=== PATIENT | female | born 1940 | race Caucasian/White ===

== ENCOUNTER → 2018-05-06 | Outpatient (CLI) | payer MEDICARE ==
[~2018-05-06] MED LIST: AEC81 PO; ATOR40TA71 PO; BRIM10DR16 OS; DICL2100G TP; FLUOROMETHOLONE 0.1% TP; GABA-531 PO; LOSA100T58 PO; METF-444 PO; TIMO.5OS OS
== END | disposition home or self-care (01) ==
LOC: RAH 13:35
PROVIDERS: ATTEND Thoracic Surgery (Cardiothoracic Vascular Surgery)
DX: I25.10 Atherosclerotic heart disease of native coronary artery without angina pectoris (principal); K76.89 Other specified diseases of liver; N28.1 Cyst of kidney, acquired; M47.815 Spondylosis without myelopathy or radiculopathy, thoracolumbar region
CPT/HCPCS: 71250

== ENCOUNTER 2018-07-02 13:17 | Observation (INO) | payer MEDICARE ==
[~2018-07-02] VITALS: Ht 157.5 cm; Wt 61.2 kg
[2018-07-02] MEDS ORDERED: NITROGLYCERIN 1GM/1 INCH PACKET TD ONE (13:42)
[2018-07-02 13:47] LABS: BASOPHILS % (AUTO) 1.1 % (0.0-5.0); EOSINOPHILS % (AUTO) 2.5 % (0.0-8.0); HEMATOCRIT 41.7 % (36-48); LYMPHOCYTES % (AUTO) 28.6 % (21.0-51.0); MEAN CORPUSCULAR HEMOGLOBIN 29.3 pg (27.0-33.0); MEAN CORPUSCULAR HGB CONC 32.9 g/dL (32.0-36.0); MEAN CORPUSCULAR VOLUME 89.2 fL (79-99); MONOCYTES % (AUTO) 8.4 % (3.0-13.0); NEUTROPHILS % (AUTO) 59.4 % (40.0-77.0); NUCLEATED RED BLOOD CELLS 0.1 % (0.0-0.19); PLATELET COUNT (AUTO) 206 K/uL (130-400); RED BLOOD CELL COUNT(AUTO) 4.68 MIL/uL (4.00-5.50); RED CELL DISTRIBUTION WIDTH 16.1 % (11.0-15.5); WHITE BLOOD COUNT (AUTO) 6.5 K/uL (4.8-10.8)
[2018-07-02 13:53] LABS: CREATININE 0.8 mg/dL (0.5-1.5)
[2018-07-02 13:57] LABS: ALBUMIN 4.1 g/dL (3.5-5.0); BILIRUBIN,TOTAL 0.7 mg/dL (0.2-1.0); TOTAL PROTEIN, SERUM 8.1 g/dL (6.0-8.3)
[2018-07-02] MEDS ORDERED: LABETALOL 20 MG/4 ML DISP.SYRIN IV ONE (14:54)
[2018-07-02] MEDS ORDERED: MORPHINE SULFATE 4 MG/1ML SYG ONE (16:44)
[2018-07-02] MEDS ORDERED: ONDANSETRON HCL 4 MG/2 ML VIAL ONE (16:44)
[2018-07-02] MEDS ORDERED: HYDRALAZINE HCL 20 MG/ML VIAL ONE (17:28)
[2018-07-02] MEDS: NITROGLYCERIN 1GM/1 INCH PACKET TD SCH ×2 (18:00→23:54)
[2018-07-02] MEDS ORDERED: HYDRALAZINE HCL 20 MG/ML VIAL IV PRN (18:30)
[2018-07-02 18:48] VITALS: BP 178/79
[2018-07-02 19:15] VITALS: BP 157/55
[2018-07-02 23:05] VITALS: BP 142/70
[2018-07-03 01:45] LABS: HEMATOCRIT 38.3 % (36-48); MEAN CORPUSCULAR HEMOGLOBIN 29.8 pg (27.0-33.0); MEAN CORPUSCULAR HGB CONC 33.3 g/dL (32.0-36.0); MEAN CORPUSCULAR VOLUME 89.6 fL (79-99); NUCLEATED RED BLOOD CELLS 0.1 % (0.0-0.19); PLATELET COUNT (AUTO) 176 K/uL (130-400); RED BLOOD CELL COUNT(AUTO) 4.27 MIL/uL (4.00-5.50); RED CELL DISTRIBUTION WIDTH 16.5 % (11.0-15.5); WHITE BLOOD COUNT (AUTO) 5.9 K/uL (4.8-10.8)
[2018-07-03 01:55] LABS: CREATININE 0.9 mg/dL (0.5-1.5); POTASSIUM 3.7 mmol/L (3.5-5.1)
[2018-07-03 03:05] VITALS: BP 161/87
[2018-07-03] MEDS: NITROGLYCERIN 1GM/1 INCH PACKET TD SCH (06:12)
[2018-07-03 07:30] VITALS: BP 165/80
--- NOTE | 2018-07-03 08:15 | NUR ---
JAQUAN HALL [facility] CALLED REGARDING CONSULT. AWAITING CALLBACK.
[2018-07-03] MEDS ORDERED: ASPIRIN 81MG TAB.CHEW PO SCH (09:00)
[2018-07-03] MEDS ORDERED: RIVA20TA PO (10:06)
[2018-07-03] MEDS ORDERED: ATOR40TA69 PO (10:06)
[2018-07-03] MEDS ORDERED: LOSA100T58 PO (10:06)
[2018-07-03] MEDS ORDERED: FURO20TA4 PO (10:06)
[2018-07-03] MEDS ORDERED: ASPI-1197 PO (10:06)
[2018-07-03] MEDS ORDERED: METO25TA6 PO (10:06)
--- NOTE | 2018-07-03 10:28 | NUR ---
REPAGED DR. JOSE A HALL REPAGED TO ANSWERING SERVICE REGARDING CONSULT AND TO INQUIRE OKAY TO RESUME HOME MEDICATIONS.
[2018-07-03 11:00] VITALS: BP 138/68
--- NOTE | 2018-07-03 11:00 | NUR ---
RICHA MCINTOSH PA FOR [facility]/DR. JOSE A HALL HERE TO SEE PATIENT. INFORMED THAT PATIENTS HOME MEDICATIONS UPDATED AND PENDING TO BE RESUMED.
[2018-07-03] MEDS ORDERED: CLONIDINE HCL 0.1 MG TABLET PO PRN (11:30)
[2018-07-03] MEDS ORDERED: FUROSEMIDE 20 MG TABLET PO PRN (11:30)
[2018-07-03] MEDS ORDERED: NITROGLYCERIN 0.4 MG SL TAB SL PRN (11:30)
--- NOTE | 2018-07-03 11:30 | NUR ---
HOME MEDICATIONS RECEIVED OKAY THAT PATIENT COULD RESUME HOME MEDICATIONS. PATIENT REPORTS TAKING HOME MEDICATIONS ASPIRIN 81MG PO, COZAAR 100MG PO, XARELTO 20 MG PO, AND METOPROLOL 25MG PO FROM HER OWN PRESCRIPTION BOTTLES, PATIENT TOLD ME SHE TOOK THEM BECAUSE RICHA MCINTOSH TOLD HER HOME MEDICATIONS WOULD BE STARTED. INFORMED PATIENT NURSING STAFF WOULD GIVE MEDICATIONS AND TO INFORM NURSE PRIOR TO TAKING MEDICATIONS.
--- NOTE | 2018-07-03 12:40 | NUR ---
PATIENT REASSESSMENT PATIENT AMBULATED AROUND THE FLOOR INSTRUCTED BY RICHA MCINTOSH DURING HIS VISIT. REASSESSED PATIENT AFTER AMBULATION AND PATIENT REPORTS NO CHEST PAIN OR DISCOMFORTS, VITAL SIGNS REMAIN STABLE. WILL CONTINUE TO MONITOR.
--- NOTE | 2018-07-03 14:45 | NUR ---
DR. JOSE A HALL MD HERE TO SEE PATIENT. STATES OKAY TO DISCHARGE PATIENT FROM CARDIOLOGY STANDPOINT AND PATIENT ALREADY HAS A SCHEDULED 2 WEEK FOLLOW-UP APPOINTMENT. WROTE FOR RX CLONIDINE 0.1MG PO PRN SBP >180.
--- NOTE | 2018-07-03 15:30 | NUR ---
DR. MATILDE LOFTON HERE TO SEE PATIENT. INFORMED MD OF DR. JOSE A HALL'S RECOMMENDATIONS. DR. CLAYTON SPOKE TO PATIENT AND PATIENT REPORTS NO CHEST PAIN TODAY. MD OKAYED TO DISCHARGE PATIENT TODAY.
[2018-07-03 16:00] VITALS: BP 155/78
--- NOTE | 2018-07-03 16:59 | NUR ---
DC PLAN VISITED WITH PATIENT. PATIENT LIVES WITH SPOUSE. INDEPENDENT ABLE TO PERFORM ADL'S. PATIENT HAS NO SERVICES OR DME'S. FEELS SAFE TO RETURN HOME. Addendum: 07/03/18 at 1709 by ROSENDO GARCIA RN CM Amended: Links added.
--- NOTE | 2018-07-03 18:00 | NUR ---
DISCHARGE DISCHARGE TEACHING PROVIDED TO PATIENT REGARDING RX, F/U APPT WITH SENIOR QUALITY TECHNICIAN (PATIENT CONFIRMS SHE ALREADY HAD SCHEDULED APPT), INFORMED PATIENT SHE WAS TO CALL TO SCHEDULE F/U WITH PCP. PATIENT VERBALIZED UNDERSTANDING OF DISCHARGE TEACHING. PATIENT REPORTS NO PAIN OR DISCOMFORTS. REMOVED 20G IV FROM RIGHT AC, CATHETER INTACT. PATIENT TO BE DRIVEN HOME BY HER .
[2018-07-03] MEDS ORDERED: ATORVASTATIN CALCIUM 40 MG TABLET PO SCH (21:00)
[2018-07-03] MEDS ORDERED: METOPROLOL TARTRATE 25 MG TAB PO SCH (21:00)
[2018-07-04] MEDS ORDERED: ASPIRIN 81MG TAB.CHEW PO SCH (09:00)
[2018-07-04] MEDS ORDERED: RIVAROXABAN 20 MG TABLET PO SCH (09:00)
[2018-07-04] MEDS ORDERED: LOSARTAN 100 MG TABLET PO SCH (09:00)
== END 2018-07-03 17:25 | disposition home or self-care (01) ==
LOC: EDH 13:17 → EDHIP 16:46 → 4BH 17:42
PROVIDERS: ADMIT Internal Medicine Pulmonary Disease; ATTEND Internal Medicine Pulmonary Disease
DX: R07.89 Other chest pain (principal); I11.0 Hypertensive heart disease with heart failure; I50.9 Heart failure, unspecified; E78.5 Hyperlipidemia, unspecified; G47.30 Sleep apnea, unspecified; H40.9 Unspecified glaucoma; I16.1 Hypertensive emergency; I25.10 Atherosclerotic heart disease of native coronary artery without angina pectoris; I25.2 Old myocardial infarction; I48.0 Paroxysmal atrial fibrillation; I73.9 Peripheral vascular disease, unspecified; Z79.01 Long term (current) use of anticoagulants; Z79.899 Other long term (current) drug therapy; Z95.1 Presence of aortocoronary bypass graft; Z96.653 Presence of artificial knee joint, bilateral; Z87.891 Personal history of nicotine dependence; Z88.0 Allergy status to penicillin
CPT/HCPCS: 36415 ×2; 71045; 80048; 80053; 82550; 83880; 84484 ×3; 85025; 85027; 93005 ×3; 99284; G0378 ×25; J0360; J2270; J2405

== ENCOUNTER 2020-12-23 07:22 | Observation (INO) | payer MEDICARE ==
[~2020-12-23] VITALS: Ht 157.5 cm; Wt 64.4 kg
[~2020-12-23 07:22] MED LIST changes: -AEC81 PO; +ASPI-1197 PO; +ATOR40TA69 PO; -ATOR40TA71 PO; -BRIM10DR16 OS; -DICL2100G TP; -FLUOROMETHOLONE 0.1% TP; +FURO20TA4 PO; -GABA-531 PO; -METF-444 PO; +METO25TA6 PO; +RIVA20TA PO; -TIMO.5OS OS
[2020-12-23 07:40] LABS: BASOPHILS % (AUTO) 0.3 % (0.0-5.0); EOSINOPHILS % (AUTO) 0.3 % (0.0-8.0); HEMATOCRIT 35.9 % (36-48); MEAN CORPUSCULAR HEMOGLOBIN 33.1 pg (27.0-33.0); MEAN CORPUSCULAR HGB CONC 34.3 g/dL (32.0-36.0); MEAN CORPUSCULAR VOLUME 96.5 fL (79-99); MONOCYTES % (AUTO) 7.9 % (3.0-13.0); NEUTROPHILS % (AUTO) 80.1 % (40.0-77.0); PLATELET COUNT (AUTO) 147 K/uL (130-400); RED BLOOD CELL COUNT(AUTO) 3.72 MIL/uL (4.00-5.50); RED CELL DISTRIBUTION WIDTH 12.9 % (11.0-15.5); WHITE BLOOD COUNT (AUTO) 7.8 K/uL (4.8-10.8)
[2020-12-23] MEDS ORDERED: MORPHINE 4 MG SYG ONE (08:09)
[2020-12-23] MEDS: MORPHINE 4 MG SYG IV SCH ×3 (08:19→11:59)
[2020-12-23 08:23] LABS: ALBUMIN 3.1 g/dL (3.5-5.0); BILIRUBIN,TOTAL 0.9 mg/dL (0.2-1.0); CREATININE 0.8 mg/dL (0.5-1.5); POTASSIUM 3.6 mmol/L (3.5-5.1); TOTAL PROTEIN, SERUM 7.3 g/dL (6.0-8.3)
[2020-12-23 09:46] LABS: CRP QUANTITATIVE 172.1 mg/L (0.00-9.0); MAGNESIUM 1.1 mg/dL (1.80-2.40)
[2020-12-23 10:17] LABS: APPEARANCE,URINE Clear (CLEAR); BILIRUBIN,URINE Negative (NEGATIVE); COLOR,URINE Yellow (YELLOW); GLUCOSE, URINE (UA) Negative (NEGATIVE); KETONES,URINE Trace mg/dL (NEGATIVE); LEUKOCYTE ESTERASE ,URINE Trace (NEGATIVE); NITRATE,URINE Positive (NEGATIVE); OCCULT BLOOD,URINE Negative (NEGATIVE); PH,URINE 5.5 (5.0-8.0); PROTEIN,URINE Trace mg/dL (NEGATIVE); UROBILINOGEN,URINE 0.2 mg/dL (0.2-1.0)
[2020-12-23 10:33] LABS: BACTERIA,URINE Moderate /HPF (None Seen); RBC,URINE 0-1 /HPF (0-1)
[2020-12-23] MEDS ORDERED: IOHEXOL-350 75 ML VIAL IV ONE (10:35)
[2020-12-23] MEDS ORDERED: CIPR-278 PO (11:29)
[2020-12-23] MEDS ORDERED: 0.9% NACL 500ML IV.SOLN 500 ML IV SCH (11:30)
[2020-12-23] MEDS ORDERED: LEVOFLOXACIN 500 MG/D5W 100 ML IV ONE (11:30)
[2020-12-23] MEDS ORDERED: LEVOFLOXACIN 500 MG/D5W 100 ML 100 ML IV SCH (11:30)
[2020-12-23] MEDS ORDERED: 0.9% NACL 500ML IV.SOLN 500 ML IV ONE (11:30)
[2020-12-23] MEDS ORDERED: DEXAMETHASONE SOD PHOSPHATE 4 MG/ML 1ML VIAL IVP SCH (12:00)
[2020-12-23] MEDS ORDERED: MAGNESIUM 2GM PREMIX 50ML 50 ML IV ONE (14:38)
[2020-12-23] MEDS ORDERED: DOCUSATE SODIUM 100 MG CAP PO PRN (15:30)
[2020-12-23] MEDS ORDERED: TEMAZEPAM 15 MG CAPSULE PO PRN (15:30)
[2020-12-23] MEDS ORDERED: POTASSIUM CHLORIDE 20MEQ/100ML 100 ML IV PRN (15:30)
[2020-12-23] MEDS ORDERED: GLUCAGON 1MG KIT 1 MG ML IM PRN (15:30)
[2020-12-23] MEDS ORDERED: KCL 20 MEQ ERTAB PO PRN (15:30)
[2020-12-23] MEDS ORDERED: DEXTROSE 50%-WATER 50 ML DISP.SYRIN IV PRN (15:30)
[2020-12-23] MEDS ORDERED: ONDANSETRON 4MG INJ IVP PRN (15:30)
[2020-12-23] MEDS ORDERED: CLONIDINE HCL 0.1 MG TABLET PO PRN (15:30)
[2020-12-23] MEDS ORDERED: MAGNESIUM 2GM PREMIX 50ML 50 ML IV PRN (15:30)
[2020-12-23] MEDS ORDERED: ACETAMINOPHEN 325 MG TAB PO PRN (15:30)
[2020-12-23] MEDS ORDERED: POTASSIUM CHLORIDE 10% ELIXIR 20 MEQ/15 ML UDCUP PO PRN (15:30)
[2020-12-23] MEDS ORDERED: LACTULOSE 20 GM/30 ML UDCUP PO PRN (15:30)
[2020-12-23] MEDS ORDERED: ACETAMINOPHEN 650 MG SUPPOSITORY RC PRN (15:30)
[2020-12-23] MEDS ORDERED: TRAMADOL HCL 50 MG TABLET PO PRN (15:30)
[2020-12-23] MEDS ORDERED: LIDOCAINE HCL-MPF 1% 2ML VIAL IV PRN (15:30)
[2020-12-23] MEDS ORDERED: METOPROLOL TARTRATE 25 MG TAB ONE (15:41)
[2020-12-23] MEDS: METOPROLOL TARTRATE 25 MG TAB PO SCH (15:42)
[2020-12-23 21:30] VITALS: BP 170/77
[2020-12-24 01:15] VITALS: BP 143/66
[2020-12-24 01:52] LABS: AMPHET/METH SCREEN,URINE NEGATIVE (NEGATIVE); BARBITURATE SCREEN, URINE NEGATIVE (NEGATIVE); BENZODIAZEPINES SCREEN,URINE NEGATIVE (NEGATIVE); CANNABINOID SCREEN,URINE NEGATIVE (NEGATIVE); COCAINE SCREEN,URINE NEGATIVE (NEGATIVE); OPIATE SCREEN,URINE POSITIVE (NEGATIVE); PHENCYCLIDINE SCREEN,URINE NEGATIVE (NEGATIVE)
[2020-12-24 04:00] VITALS: BP 154/69
[2020-12-24 05:43] LABS: BASOPHILS % (AUTO) 0.2 % (0.0-5.0); EOSINOPHILS % (AUTO) 1.7 % (0.0-8.0); HEMATOCRIT 35.8 % (36-48); LYMPHOCYTES % (AUTO) 11.4 % (21.0-51.0); MEAN CORPUSCULAR HEMOGLOBIN 32.8 pg (27.0-33.0); MEAN CORPUSCULAR HGB CONC 34.4 g/dL (32.0-36.0); MEAN CORPUSCULAR VOLUME 95.5 fL (79-99); MONOCYTES % (AUTO) 2.5 % (3.0-13.0); NEUTROPHILS % (AUTO) 83.9 % (40.0-77.0); PLATELET COUNT (AUTO) 172 K/uL (130-400); RED BLOOD CELL COUNT(AUTO) 3.75 MIL/uL (4.00-5.50); RED CELL DISTRIBUTION WIDTH 12.4 % (11.0-15.5); WHITE BLOOD COUNT (AUTO) 6.4 K/uL (4.8-10.8)
[2020-12-24 06:29] LABS: CREATININE 0.8 mg/dL (0.5-1.5); MAGNESIUM 2.1 mg/dL (1.80-2.40); PHOSPHORUS 3.4 mg/dL (2.5-4.9); POTASSIUM 4.1 mmol/L (3.5-5.1); THYROID STIMULATING HORMONE 0.29 uIU/mL (0.36-3.74)
[2020-12-24 08:00] VITALS: BP 155/68
[2020-12-24] MEDS: METOPROLOL TARTRATE 25 MG TAB PO SCH (08:51)
[2020-12-24] MEDS ORDERED: ASPIRIN 81MG CHEW TAB PO SCH (09:00)
[2020-12-24] MEDS ORDERED: LOSARTAN 100 MG TABLET PO SCH (09:00)
[2020-12-24] MEDS ORDERED: RIVAROXABAN 20 MG TABLET PO SCH (09:00)
[2020-12-24] MEDS ORDERED: LEVOFLOXACIN 500 MG TABLET PO SCH (09:00)
[2020-12-24 11:38] VITALS: BP 119/57
[2020-12-24] MEDS ORDERED: LEVO500T90 PO (13:16)
== END 2020-12-24 16:30 | disposition home or self-care (01) ==
LOC: EDH 07:22 → EDHIP 15:25 → 3AH 20:52
PROVIDERS: ADMIT Internal Medicine Critical Care Medicine; ATTEND Internal Medicine Critical Care Medicine
DX: E87.8 Other disorders of electrolyte and fluid balance, not elsewhere classified (principal); Z20.822 Contact with and (suspected) exposure to COVID-19; M79.10 Myalgia, unspecified site; E86.0 Dehydration; G89.29 Other chronic pain; M54.9 Dorsalgia, unspecified; N30.00 Acute cystitis without hematuria; E83.42 Hypomagnesemia; I10 Essential (primary) hypertension; E78.5 Hyperlipidemia, unspecified; F10.129 Alcohol abuse with intoxication, unspecified; Z79.82 Long term (current) use of aspirin; Z87.891 Personal history of nicotine dependence; Z79.899 Other long term (current) drug therapy; Z79.01 Long term (current) use of anticoagulants
CPT/HCPCS: 36415 ×2; 71045; 74177; 80048; 80053; 80305; 81001; 82550; 82948 ×2; 83605; 83690; 83735 ×3; 84100; 84145; 84443; 84484; 85025 ×2; 85651; 86140; 87077; 87088; 87186; 87635; 87804 ×2; 93005; 96365; 96367; 96375; 96376; 99285; C9803; G0378 ×25; J1100; J1956; J2270; J3475 ×2; Q9967; 96366

== ENCOUNTER 2023-02-28 11:33 | Observation (INO) | payer MEDICARE ==
[~2023-02-28] VITALS: Ht 157.5 cm; Wt 64.2 kg
[~2023-02-28 11:33] MED LIST changes: +LEVO-70 PO; -LOSA100T58 PO; +LOSA100T59 PO
[2023-02-28 12:32] LABS: HEMATOCRIT 40.4 % (36-48); MEAN CORPUSCULAR HGB CONC 33.2 g/dL (32.0-36.0); MEAN CORPUSCULAR VOLUME 102.5 fL (79-99); PLATELET COUNT (AUTO) 126 K/uL (130-400); RED BLOOD CELL COUNT(AUTO) 3.94 MIL/uL (4.00-5.50); RED CELL DISTRIBUTION WIDTH 13.1 % (11.0-15.5); WHITE BLOOD COUNT (AUTO) 5.4 K/uL (4.8-10.8)
[2023-02-28 12:48] LABS: CREATININE 0.9 mg/dL (0.5-1.5); TOTAL PROTEIN, SERUM 7.8 g/dL (6.0-8.3)
[2023-02-28 12:51] LABS: POTASSIUM 6.1 mmol/L (3.5-5.1)
[2023-02-28 13:07] LABS: LYMPHOCYTES % (MANUAL) 14 % (22-44); MAN.DIFF COMMENT-IMPRESSION MANUAL DIFFERENTIAL; MONOCYTES % (MANUAL) 11 % (2-9); PLATELET MORPHOLOGY COMMENT ADEQUATE; SEGMENTED NEUTROPHILS % 75 % (40-70); TOTAL CELLS COUNTED 100; WBC MORPHOLOGY SLIDE REVIEWED
[2023-02-28] MEDS ORDERED: ALBUTEROL 0.083% 2.5 MG/3 ML INH IH SCH (13:30)
[2023-02-28] MEDS ORDERED: SODIUM BICARB 8.4% 50ML SYRINGE IVP ONE (13:30)
[2023-02-28] MEDS ORDERED: CALCIUM GLUC 1GM 1 GM in 0.9%NACL 100ML 100 ML IV ONE (13:30)
[2023-02-28] MEDS ORDERED: INSULIN HUMULIN R 100 UNIT/ML 3ML IV ONE (13:30)
[2023-02-28] MEDS ORDERED: DEXTROSE 50%-WATER 25 GM/50 ML VIAL IV ONE (13:30)
[2023-02-28] MEDS ORDERED: 0.9% NACL 500ML IV.SOLN 500 ML IV ONE (13:30)
[2023-02-28 13:43] LABS: APPEARANCE,URINE CLEAR (CLEAR); BILIRUBIN,URINE NEGATIVE (NEGATIVE); COLOR,URINE COLORLESS (YELLOW); GLUCOSE, URINE (UA) NEGATIVE (NEGATIVE); KETONES,URINE NEGATIVE (NEGATIVE); LEUKOCYTE ESTERASE ,URINE NEGATIVE Leu/uL (NEGATIVE); NITRATE,URINE NEGATIVE (NEGATIVE); OCCULT BLOOD,URINE NEGATIVE (NEGATIVE); PROTEIN,URINE NEGATIVE (NEGATIVE); UROBILINOGEN,URINE 0.2 mg/dL (0.2-1.0)
[2023-02-28 13:53] LABS: ADD UA MICROSCOPIC NO
[2023-02-28] MEDS ORDERED: SODIUM BICARB 50MEQ 50ML VIAL 50 ML ONE (14:01)
[2023-02-28] MEDS ORDERED: DEXTROSE 50%-WATER 50 ML DISP.SYRIN IV ONE (14:02)
[2023-02-28 14:41] VITALS: PULSE 135
[2023-02-28] MEDS ORDERED: ACETAMINOPHEN 325 MG TAB PO PRN ×2 (16:00)
[2023-02-28] MEDS ORDERED: NITROGLYCERIN 0.4 MG SL TAB SL PRN (16:00)
[2023-02-28] MEDS: KAYEXALATE 15GM/60ML PO NR (16:00)
[2023-02-28] MEDS ORDERED: LACTULOSE 20 GM/30 ML UDCUP PO PRN (16:00)
[2023-02-28] MEDS ORDERED: MAG/ALUM/SIMETH 30 ML UDCUP PO PRN (16:00)
[2023-02-28] MEDS ORDERED: GUAIFENESIN-DM 200/20 MG 10 ML PO PRN (16:00)
[2023-02-28] MEDS ORDERED: ONDANSETRON 4MG INJ IV PRN (16:00)
[2023-02-28] MEDS: 0.9%NACL 1000ML 1,000 ML IV SCH (16:00)
[2023-02-28] MEDS ORDERED: ZOLPIDEM TARTRATE 5 MG TAB PO PRN (16:00)
[2023-02-28] MEDS ORDERED: DIPHENHYDRAMINE HCL 25 MG CAPSULE PO PRN (16:00)
[2023-02-28] MEDS: HYDRALAZINE 20MG/ML VIAL IV PRN (16:37)
[2023-02-28] MEDS: FAMOTIDINE 20MG TAB PO SCH (22:04)
[2023-03-01] MEDS ORDERED: KAYEXALATE 15GM/60ML PO ONE (09:00)
[2023-03-01 09:55] LABS: COVID19 (SARS ANTIGEN RAPID) PRESUMPTIVE NEGATIVE (NEGATIVE); INFLUENZA TYPE A Negative For Type A (NEGATIVE); INFLUENZA TYPE B Negative For Type B (NEGATIVE)
[2023-03-01] MEDS: FAMOTIDINE 20MG TAB PO SCH ×2 (10:08→21:22)
[2023-03-01] MEDS: ENOXAPARIN SODIUM 40 MG/0.4 ML SYRINGE SQ SCH (10:10)
[2023-03-01 10:22] LABS: BASOPHILS # (AUTO) 0.04 K/uL (0.00-0.20); BASOPHILS % (AUTO) 0.7 % (0.0-5.0); EOSINOPHILS # (AUTO) 0.12 K/uL (0.00-0.70); HEMATOCRIT 38.5 % (36-48); IMMATURE GRANULOCYTE ABSOLUTE 0.02 K/uL (0-1); LYMPHOCYTES # (AUTO) 1.1 K/uL (1.0-4.8); MEAN CORPUSCULAR HEMOGLOBIN 34.1 pg (27.0-33.0); MEAN CORPUSCULAR HGB CONC 33.8 g/dL (32.0-36.0); MONOCYTES # (AUTO) 0.5 K/uL (0.1-1.0); MONOCYTES % (AUTO) 8.9 % (3.0-13.0); NEUTROPHILS # (AUTO) 4.3 K/uL (1.8-7.7); NEUTROPHILS % (AUTO) 70.1 % (40.0-77.0); PLATELET COUNT (AUTO) 143 K/uL (130-400); RED BLOOD CELL COUNT(AUTO) 3.81 MIL/uL (4.00-5.50); RED CELL DISTRIBUTION WIDTH 13.2 % (11.0-15.5); WHITE BLOOD COUNT (AUTO) 6.1 K/uL (4.8-10.8)
[2023-03-01] MEDS ORDERED: CYAN500T46 PO (10:55)
[2023-03-01] MEDS ORDERED: CARV25TA PO (10:55)
[2023-03-01] MEDS ORDERED: DICL100G32 TP (10:55)
[2023-03-01] MEDS ORDERED: CLON0.1T PO (10:55)
[2023-03-01] MEDS ORDERED: SOLI10TA7 PO (10:55)
[2023-03-01] MEDS ORDERED: DOXA1TAB2 PO (10:55)
[2023-03-01] MEDS ORDERED: POTA-81 PO (10:55)
[2023-03-01 11:09] LABS: CREATININE 0.8 mg/dL (0.5-1.5); POTASSIUM 4.9 mmol/L (3.5-5.1)
[2023-03-01] MEDS: 0.9%NACL 1000ML 1,000 ML IV SCH (11:47)
[2023-03-01 16:00] VITALS: BP 158/83; PULSE 98; RESP 20
[2023-03-01] MEDS ORDERED: FUROSEMIDE 20 MG TABLET PO PRN (16:00)
[2023-03-01] MEDS: DOXAZOSIN MESYLATE 2 MG TABLET PO SCH (16:39)
[2023-03-01 20:56] VITALS: BP 161/79; PULSE 86; RESP 18
[2023-03-01 21:00] VITALS: O2SAT 98
[2023-03-01] MEDS ORDERED: ATORVASTATIN 40 MG TABLET PO SCH (21:00)
[2023-03-01] MEDS: METOPROLOL TARTRATE 25 MG TAB PO SCH ×2 (21:00→21:22)
[2023-03-01] MEDS: CARVEDILOL 25 MG TABLET PO SCH (21:22)
[2023-03-01] MEDS ORDERED: KAYEXALATE 15GM/60ML PO SCH (21:30)
[2023-03-01] MEDS: KAYEXALATE 15GM/60ML PO NR (21:33)
[2023-03-02 00:50] VITALS: BP 172/87; PULSE 95; RESP 19
[2023-03-02 01:00] VITALS: BP 153/74
[2023-03-02] MEDS: HYDRALAZINE 20MG/ML VIAL IV PRN (04:29)
[2023-03-02 04:30] VITALS: BP 176/92; PULSE 87; RESP 19
[2023-03-02 05:00] VITALS: BP 112/57; PULSE 92
[2023-03-02 06:43] LABS: BASOPHILS # (AUTO) 0.03 K/uL (0.00-0.20); BASOPHILS % (AUTO) 0.6 % (0.0-5.0); EOSINOPHILS # (AUTO) 0.15 K/uL (0.00-0.70); EOSINOPHILS % (AUTO) 2.8 % (0.0-8.0); IMMATURE GRANULOCYTE ABSOLUTE 0.03 K/uL (0-1); LYMPHOCYTES % (AUTO) 18.9 % (21.0-51.0); MEAN CORPUSCULAR HEMOGLOBIN 34.6 pg (27.0-33.0); MEAN CORPUSCULAR HGB CONC 34.1 g/dL (32.0-36.0); MEAN CORPUSCULAR VOLUME 101.6 fL (79-99); MONOCYTES # (AUTO) 0.7 K/uL (0.1-1.0); MONOCYTES % (AUTO) 13.4 % (3.0-13.0); NEUTROPHILS # (AUTO) 3.4 K/uL (1.8-7.7); NEUTROPHILS % (AUTO) 63.7 % (40.0-77.0); PLATELET COUNT (AUTO) 116 K/uL (130-400); RED BLOOD CELL COUNT(AUTO) 3.64 MIL/uL (4.00-5.50); RED CELL DISTRIBUTION WIDTH 13.2 % (11.0-15.5); WHITE BLOOD COUNT (AUTO) 5.3 K/uL (4.8-10.8)
[2023-03-02 07:01] LABS: ALBUMIN 3.3 g/dL (3.5-5.0); BILIRUBIN,TOTAL 0.9 mg/dL (0.2-1.0); CREATININE 0.7 mg/dL (0.5-1.5); TOTAL PROTEIN, SERUM 6.5 g/dL (6.0-8.3)
[2023-03-02 08:00] VITALS: BP 130/68; PULSE 66; RESP 20; O2SAT 97
[2023-03-02 08:44] LABS: MAGNESIUM 0.8 mg/dL (1.80-2.40)
[2023-03-02] MEDS ORDERED: AMLO-258 PO (09:20)
[2023-03-02] MEDS ORDERED: MAGNESIUM 2GM PREMIX 50ML 50 ML IV PRN ×2 (09:30)
[2023-03-02] MEDS: FAMOTIDINE 20MG TAB PO SCH (09:51)
[2023-03-02] MEDS: METOPROLOL TARTRATE 25 MG TAB PO SCH (09:52)
[2023-03-02] MEDS: DOXAZOSIN MESYLATE 2 MG TABLET PO SCH (09:52)
[2023-03-02] MEDS: CARVEDILOL 25 MG TABLET PO SCH (09:52)
[2023-03-02] MEDS: ENOXAPARIN SODIUM 40 MG/0.4 ML SYRINGE SQ SCH (09:54)
[2023-03-02 12:00] VITALS: BP 119/53; PULSE 92; RESP 20
[2023-03-02] MEDS ORDERED: MAGNESIUM OXIDE 400 MG TABLET PO ONE (12:30)
[2023-03-04] MEDS ORDERED: CHOL500051 PO (09:50)
[2023-03-04] MEDS ORDERED: PROP10DR4 OU (12:24)
== END 2023-03-02 15:20 | disposition home or self-care (01) ==
LOC: EDH 11:33 → EDHIP 15:56 → 3AH 03-01 11:19
PROVIDERS: ADMIT Internal Medicine Pulmonary Disease; ATTEND Internal Medicine Pulmonary Disease
DX: I11.9 Hypertensive heart disease without heart failure (principal); Z20.822 Contact with and (suspected) exposure to COVID-19; D69.6 Thrombocytopenia, unspecified; M25.511 Pain in right shoulder; E87.5 Hyperkalemia; I25.10 Atherosclerotic heart disease of native coronary artery without angina pectoris; I25.2 Old myocardial infarction; Z95.1 Presence of aortocoronary bypass graft; Z79.899 Other long term (current) drug therapy; Z88.0 Allergy status to penicillin; Z90.710 Acquired absence of both cervix and uterus; Z79.82 Long term (current) use of aspirin; Z96.659 Presence of unspecified artificial knee joint
CPT/HCPCS: 96365; 96366 ×2; 96375; 99284; 84132 ×5; 80053 ×2; 85025 ×3; 36415 ×3; 93005 ×2; 94640; 96372 ×2; 96361 ×2; 80048; 87804 ×2; 87426; 96376; 96367; 83735 ×3; G0378 ×43; J7040; J3490; J7070 ×2; J0360 ×2; J0610; J1815; J1650 ×2; J3475

== ENCOUNTER 2023-03-05 05:50 | Observation (INO) | payer MEDICARE ==
[2023-02-28 10:56] LABS: BASOPHILS # (AUTO) 0.04 K/uL (0.00-0.20); BASOPHILS % (AUTO) 0.7 % (0.0-5.0); EOSINOPHILS # (AUTO) 0.07 K/uL (0.00-0.70); EOSINOPHILS % (AUTO) 1.3 % (0.0-8.0); HEMATOCRIT 40.2 % (36-48); IMMATURE GRANULOCYTE ABSOLUTE 0.02 K/uL (0-1); LYMPHOCYTES # (AUTO) 1.2 K/uL (1.0-4.8); LYMPHOCYTES % (AUTO) 21.9 % (21.0-51.0); MEAN CORPUSCULAR HEMOGLOBIN 33.8 pg (27.0-33.0); MEAN CORPUSCULAR HGB CONC 32.3 g/dL (32.0-36.0); MEAN CORPUSCULAR VOLUME 104.4 fL (79-99); MONOCYTES # (AUTO) 0.5 K/uL (0.1-1.0); MONOCYTES % (AUTO) 9.8 % (3.0-13.0); NEUTROPHILS # (AUTO) 3.6 K/uL (1.8-7.7); NEUTROPHILS % (AUTO) 65.9 % (40.0-77.0); PLATELET COUNT (AUTO) 145 K/uL (130-400); RED BLOOD CELL COUNT(AUTO) 3.85 MIL/uL (4.00-5.50); RED CELL DISTRIBUTION WIDTH 13.2 % (11.0-15.5); WHITE BLOOD COUNT (AUTO) 5.5 K/uL (4.8-10.8)
[2023-02-28 11:11] LABS: CREATININE 0.9 mg/dL (0.5-1.5)
[2023-02-28 11:11] LABS: APPEARANCE,URINE CLEAR (CLEAR); BILIRUBIN,URINE NEGATIVE (NEGATIVE); COLOR,URINE LIGHT-YELLOW (YELLOW); GLUCOSE, URINE (UA) NEGATIVE (NEGATIVE); KETONES,URINE NEGATIVE (NEGATIVE); LEUKOCYTE ESTERASE ,URINE NEGATIVE Leu/uL (NEGATIVE); NITRATE,URINE NEGATIVE (NEGATIVE); OCCULT BLOOD,URINE NEGATIVE (NEGATIVE); PROTEIN,URINE NEGATIVE (NEGATIVE); UROBILINOGEN,URINE 0.2 mg/dL (0.2-1.0)
[2023-02-28 11:14] LABS: POTASSIUM 6.7 mmol/L (3.5-5.1)
[2023-02-28 11:15] LABS: ADD UA MICROSCOPIC NO
[2023-02-28 11:30] LABS: INR < 0.93 (0.85-1.15); PROTHROMBIN TIME 10.6 SEC (9.6-11.6)
[2023-02-28 13:08] VITALS: BP 183/86; PULSE 65; RESP 16
[~2023-03-05] VITALS: Ht 157.5 cm; Wt 63.7 kg
[2023-03-05] VITALS (32 sets, daily range): BP systolic 104–148; BP diastolic 46–81; PULSE 56–71; RESP 14–19
[~2023-03-05 05:50] MED LIST changes: +AMLO-258 PO; +CARV25TA PO; +CHOL500051 PO; +CLON0.1T PO; +CYAN500T46 PO; +DOXA1TAB2 PO; -FURO20TA4 PO; -LEVO-70 PO; -LOSA100T59 PO; -METO25TA6 PO; +PROP10DR4 OU
[2023-03-05] MEDS ORDERED: LACTATED RINGERS 1000ML 1,000 ML IV ONE (06:24)
[2023-03-05] MEDS ORDERED: CLINDAMYCIN IVPB 900MG/50ML 50 ML IV ONE (06:25)
[2023-03-05] MEDS ORDERED: ONDANSETRON 4MG INJ ONE (09:53)
[2023-03-05] MEDS ORDERED: PROPOFOL 10 MG/ML 20ML VIAL IV ONE (09:53)
[2023-03-05] MEDS ORDERED: GLYCOPYRROLATE 0.2 MG/ML 5 ML VIAL ONE (09:53)
[2023-03-05] MEDS ORDERED: LIDOCAINE PF 100MG/5ML (2%) SYRINGE 5ML ONE (09:53)
[2023-03-05] MEDS ORDERED: DEXAMETHASONE SOD PHOSPHATE 10MG/ML 1ML VIAL ONE (09:53)
[2023-03-05] MEDS ORDERED: SUCCINYLCHOLINE CHLORIDE 20 MG/ML 10 ML VIAL ONE (09:53)
[2023-03-05] MEDS ORDERED: ROCURONIUM BROMIDE 10MG/1ML 5ML VL ONE (09:54)
[2023-03-05] MEDS ORDERED: FENTANYL CITRATE PF 50 MCG/1 ML 2ML VIAL ONE (09:54)
[2023-03-05] MEDS ORDERED: MIDAZOLAM HCL 1 MG/ML 2ML VIAL ONE (09:54)
[2023-03-05] MEDS ORDERED: NEOSTIGMINE METHYLSULFATE 1MG/ML IV ONE (09:54)
[2023-03-05] MEDS ORDERED: PHENYLEPHRINE HCL 10 MG/ML 1ML VIAL IV ONE (10:47)
[2023-03-05] MEDS ORDERED: ALBUMIN (HUMAN) 5% 250 ML IV ONE (10:50)
[2023-03-05] MEDS ORDERED: TRANEXAMIC ACID 1000MG/10ML ONE (10:50)
[2023-03-05] MEDS ORDERED: SUGAMMADEX SODIUM 200 MG/2 ML VIAL IV ONE (13:02)
[2023-03-05] MEDS ORDERED: FE FUMARATE/FA/MV, MIN COMB#15 1 TAB PO PRN (13:30)
[2023-03-05] MEDS ORDERED: POTASSIUM CHLORIDE 10% ELIXIR 20 MEQ/15 ML UDCUP PO PRN (13:30)
[2023-03-05] MEDS: 0.9%NACL 1000ML 1,000 ML IV SCH ×2 (13:30→22:26)
[2023-03-05] MEDS ORDERED: ONDANSETRON 4MG INJ IVP PRN (13:30)
[2023-03-05] MEDS ORDERED: TRAMADOL HCL 50 MG TABLET PO PRN (13:30)
[2023-03-05] MEDS ORDERED: CYCLOBENZAPRINE HCL 10 MG TABLET PO PRN (13:30)
[2023-03-05] MEDS ORDERED: POTASSIUM CHLORIDE 20MEQ/100ML 100 ML IV PRN (13:30)
[2023-03-05] MEDS ORDERED: CALCIUM CARB 500MG PO PRN (13:30)
[2023-03-05] MEDS ORDERED: KCL 20 MEQ ERTAB PO PRN (13:30)
[2023-03-05] MEDS ORDERED: MEPERIDINE-PF 25 MG/ML SYG ONE (14:21)
[2023-03-05] MEDS ORDERED: KETOROLAC 15MG/ML VIAL (15MG/ML) ONE (14:21)
[2023-03-05] MEDS: KETOROLAC 15MG/ML VIAL (15MG/ML) IV SCH ×2 (14:25→21:20)
[2023-03-05] MEDS ORDERED: 0.9%NACL 1000ML 1,000 ML IV ONE (16:11)
[2023-03-05] MEDS: GABAPENTIN 100 MG CAPSULE PO SCH ×2 (16:17→19:51)
[2023-03-05] MEDS: CLINDAMYCIN IVPB 900MG/50ML IV SCH (19:51)
[2023-03-05] MEDS: DOCUSATE SODIUM 100 MG CAP PO SCH (19:51)
[2023-03-05] MEDS: HYDROCODONE/ACETAMINOPHEN 5/325 MG TAB PO PRN (23:02)
[2023-03-06 01:00] VITALS: BP 120/56; PULSE 62; RESP 17
[2023-03-06] MEDS ORDERED: CLONIDINE HCL 0.1 MG TABLET PO PRN (01:30)
[2023-03-06] MEDS: CLINDAMYCIN IVPB 900MG/50ML IV SCH (02:31)
[2023-03-06 04:02] VITALS: BP 122/57; PULSE 66; RESP 18
[2023-03-06 04:35] LABS: HEMATOCRIT 28.7 % (36-48); MEAN CORPUSCULAR HEMOGLOBIN 33.5 pg (27.0-33.0); MEAN CORPUSCULAR HGB CONC 33.1 g/dL (32.0-36.0); MEAN CORPUSCULAR VOLUME 101.1 fL (79-99); RED BLOOD CELL COUNT(AUTO) 2.84 MIL/uL (4.00-5.50); RED CELL DISTRIBUTION WIDTH 12.4 % (11.0-15.5); WHITE BLOOD COUNT (AUTO) 7.8 K/uL (4.8-10.8)
[2023-03-06 04:45] LABS: CREATININE 0.7 mg/dL (0.5-1.5)
[2023-03-06] MEDS: KETOROLAC 15MG/ML VIAL (15MG/ML) IV SCH (04:58)
[2023-03-06] MEDS: HYDROCODONE/ACETAMINOPHEN 5/325 MG TAB PO PRN ×2 (05:28→09:43)
[2023-03-06 08:00] VITALS: BP 120/61; PULSE 64; RESP 18
[2023-03-06] MEDS ORDERED: AMLODIPINE 5 MG TAB PO SCH (09:00)
[2023-03-06] MEDS ORDERED: (Cholecalciferol (Vitamin D3) (Vitamin D3) 125 MCG) PO SCH (09:00)
[2023-03-06] MEDS ORDERED: PROPYLENE GLYCOL OU SCH (09:00)
[2023-03-06] MEDS ORDERED: CARVEDILOL 25 MG TABLET PO SCH (09:00)
[2023-03-06] MEDS ORDERED: POLYETHYLENE GLYCOL 3350 17 GM POWD.PACK PO SCH (09:00)
[2023-03-06] MEDS ORDERED: CYANOCOBALAMIN (VITAMIN B-12) 100 MCG TABLET PO SCH (09:00)
[2023-03-06] MEDS: 0.9%NACL 1000ML 1,000 ML IV SCH (09:30)
[2023-03-06] MEDS: DOCUSATE SODIUM 100 MG CAP PO SCH (09:41)
[2023-03-06 12:00] VITALS: BP 115/57; PULSE 66; RESP 18
[2023-03-06] MEDS ORDERED: CYCL-309 PO (12:39)
[2023-03-06] MEDS ORDERED: HYDR-4060 PO (12:39)
[2023-03-06] MEDS ORDERED: DOCU-116 PO (12:39)
[2023-03-06] MEDS ORDERED: KETOROLAC 15MG/ML VIAL (15MG/ML) IV PRN (13:30)
[2023-03-06] MEDS ORDERED: ATORVASTATIN 40 MG TABLET PO SCH (21:00)
[2023-03-06] MEDS ORDERED: DOXAZOSIN MESYLATE 1 MG PO SCH (21:00)
[2023-03-08] MEDS ORDERED: BISACODYL 10 MG SUPP.RECT RC PRN (13:30)
== END 2023-03-06 15:50 | disposition home or self-care (01) ==
LOC: DAH 05:50 → DAHIP 05:51 → DAH 05:51 → 4BH 20:20
PROVIDERS: ADMIT Student in an Organized Health Care Education/Training Program; ATTEND Student in an Organized Health Care Education/Training Program
DX: M19.011 Primary osteoarthritis, right shoulder (principal); I11.0 Hypertensive heart disease with heart failure; I50.9 Heart failure, unspecified; I48.91 Unspecified atrial fibrillation; G47.33 Obstructive sleep apnea (adult) (pediatric); E78.5 Hyperlipidemia, unspecified; Z87.891 Personal history of nicotine dependence; Z79.899 Other long term (current) drug therapy
CPT/HCPCS: 82040; 80048 ×2; 85025; 85610; 85730; 87077; 87088; 87186; 84134; 86140; 81003; 36415 ×2; 87641; 96365; 96375; 64415; 23472; 73030; 97161; 97116 ×3; 97530 ×8; 96376; 96366; 85027; 82948; G0378 ×19; A4600; A4663; J7030 ×2; A4565; C1776; P9045; J7120; J3010; J3490 ×6; J1100; J0330; J2001; J2250; J2704; J2405; J2710; J2175; J1885 ×4; A6446; G0168; A4649 ×2; A6254; A5120; A4215; A4223; A4222; A4221; J2371

== ENCOUNTER → 2023-06-26 | Outpatient (CLI) | payer MEDICARE ==
[~2023-06-26] MED LIST changes: +CYCL-309 PO; +DOCU-116 PO; +HYDR-4060 PO
[2023-06-26 16:29] LABS: CREATININE 0.9 mg/dL (0.5-1.0); POTASSIUM 4.5 mmol/L (3.5-5.1)
== END | disposition home or self-care (01) ==
LOC: LAB 15:51
PROVIDERS: ATTEND Internal Medicine Cardiovascular Disease
DX: E87.5 Hyperkalemia (principal)
CPT/HCPCS: 36415; 80048

== ENCOUNTER 2024-02-11 16:00 | Observation (INO) | payer MEDICARE ==
[~2024-02-11] VITALS: Ht 157.5 cm; Wt 63.5 kg
[2024-02-11 12:39] LABS: BASOPHILS # (AUTO) 0.06 K/uL (0.00-0.20); BASOPHILS % (AUTO) 0.8 % (0.0-5.0); EOSINOPHILS % (AUTO) 1.4 % (0.0-8.0); HEMATOCRIT 40.1 % (36-48); IMMATURE GRANULOCYTE ABSOLUTE 0.04 K/uL (0-1); LYMPHOCYTES # (AUTO) 1.5 K/uL (1.0-4.8); LYMPHOCYTES % (AUTO) 21.2 % (21.0-51.0); MEAN CORPUSCULAR HEMOGLOBIN 33.2 pg (27.0-33.0); MEAN CORPUSCULAR HGB CONC 32.7 g/dL (32.0-36.0); MEAN CORPUSCULAR VOLUME 101.8 fL (79-99); MONOCYTES # (AUTO) 0.8 K/uL (0.1-1.0); MONOCYTES % (AUTO) 10.9 % (3.0-13.0); NEUTROPHILS # (AUTO) 4.6 K/uL (1.8-7.7); NEUTROPHILS % (AUTO) 65.1 % (40.0-77.0); PLATELET COUNT (AUTO) 170 K/uL (130-400); RED BLOOD CELL COUNT(AUTO) 3.94 MIL/uL (4.00-5.50); RED CELL DISTRIBUTION WIDTH 12.2 % (11.0-15.5); WHITE BLOOD COUNT (AUTO) 7.1 K/uL (4.8-10.8)
[2024-02-11 12:46] LABS: APPEARANCE,URINE CLOUDY (CLEAR); BILIRUBIN,URINE NEGATIVE (NEGATIVE); COLOR,URINE YELLOW (YELLOW); GLUCOSE, URINE (UA) NEGATIVE (NEGATIVE); KETONES,URINE NEGATIVE (NEGATIVE); LEUKOCYTE ESTERASE ,URINE 25 Leu/uL (NEGATIVE); NITRATE,URINE 1+ (NEGATIVE); OCCULT BLOOD,URINE NEGATIVE (NEGATIVE); PH,URINE 6.5 (5.0-8.0); PROTEIN,URINE 10 mg/dL (NEGATIVE); UROBILINOGEN,URINE 0.2 mg/dL (0.2-1.0)
[2024-02-11 12:48] LABS: ADD UA MICROSCOPIC YES
[2024-02-11 12:48] LABS: INR 1.01 (0.85-1.15); PROTHROMBIN TIME 10.9 SEC (9.6-11.6)
[2024-02-11 12:49] LABS: PARTIAL THROMBOPLASTIN TIME 29.3 SEC (26.3-35.5)
[2024-02-11 12:51] LABS: ALBUMIN 3.6 g/dL (3.5-5.0); POTASSIUM 4.5 mmol/L (3.5-5.1)
[2024-02-11 12:59] LABS: BACTERIA,URINE FEW /HPF (None Seen); OTHER CASTS, URINE 1 /LPF (None Seen); RBC,URINE 0-1 /HPF (0-1); SQUAMOUS EPITHELIAL CELL,UR FEW /HPF (0-2)
[2024-02-11 13:05] VITALS: BP 174/94; PULSE 62; RESP 18; TEMP 97.2
[~2024-02-11 16:00] MED LIST changes: +ACET-66 PO; -AMLO-258 PO; -CHOL500051 PO; -CLON0.1T PO; -CYAN500T46 PO; -CYCL-309 PO; -DOCU-116 PO; +FURO20TA4 PO; -HYDR-4060 PO; +LOSA100T59 PO; -PROP10DR4 OU
--- NOTE | 2024-02-17 10:52 | NUR ---
RE: LABS REPORTED URINE CX/SENSITIVITIES TO DR DIAZ, CONTINUE WITH CEFAZOLIN LIDDING MACHINE OPERATOR TO OR PREVIOUSLY ORDERED.
[2024-02-18] VITALS (30 sets, daily range): BP systolic 84–203; BP diastolic 46–113; PULSE 55–79; RESP 13–18; TEMP 96.9–97.8; O2SAT 98–99
[2024-02-18] MEDS ORDERED: LIDOCAINE PF 100MG/5ML (2%) SYRINGE 5ML ONE (06:47)
[2024-02-18] MEDS ORDERED: MIDAZOLAM HCL 1 MG/ML 2ML VIAL ONE (06:47)
[2024-02-18] MEDS ORDERED: ondanSETRON 4MG INJ ONE (06:47)
[2024-02-18] MEDS ORDERED: proPOFol 10 MG/ML 20ML VIAL IV ONE (06:47)
[2024-02-18] MEDS ORDERED: GLYCOPYRROLATE 0.2 MG/ML 5 ML VIAL ONE (06:47)
[2024-02-18] MEDS ORDERED: dexaMETHasone SOD PHOSPHATE 10MG/ML 1ML VIAL ONE ×2 (06:47→07:45)
[2024-02-18] MEDS ORDERED: NEOSTIGMINE METHYLSULFATE 1MG/ML IV ONE (06:47)
[2024-02-18] MEDS ORDERED: rocuRONium bROMide 10MG/1ML 5ML VL ONE (06:48)
[2024-02-18] MEDS ORDERED: FENTanyl CITRate PF 50 MCG/1 ML 2ML VIAL ONE ×2 (06:48→09:37)
[2024-02-18] MEDS ORDERED: ROPivacaine 0.5% 5MG/ML 30ML ONE (06:52)
[2024-02-18] MEDS ORDERED: phenylEPHRINE HCL 10 MG/ML 1ML VIAL IV ONE (06:54)
[2024-02-18] MEDS: ceFAZolin SODIUM 2 GM VIAL ONE (07:17)
[2024-02-18] MEDS: CLINDAMYCIN IVPB 900MG/50ML 0 ML IV ONE (07:17)
[2024-02-18] MEDS: LACTATED RINGERS 1000ML 1,000 ML IV ONE (07:18)
[2024-02-18] MEDS ORDERED: DiphenhydrAMINE HCL 50 MG/ML VIAL IVP PRN (07:30)
[2024-02-18] MEDS ORDERED: FERROUS FUMARATE 324 MG TABLET PO PRN (07:30)
[2024-02-18] MEDS ORDERED: furoSEMIDE 20 MG TABLET PO SCH (07:30)
[2024-02-18] MEDS ORDERED: PoTASSium chl 10% ELIXIR 20MEQ 20 MEQ/15 ML UDCUP PO PRN (07:30)
[2024-02-18] MEDS ORDERED: PoTASSium chloRIDE 20MEQ ER 20 MEQ ERTAB PO PRN (07:30)
[2024-02-18] MEDS: ketOROlac 15MG/ML VIAL (15MG/ML) IV SCH (07:30)
[2024-02-18] MEDS ORDERED: ondanSETRON 4MG INJ IVP PRN (07:30)
[2024-02-18] MEDS ORDERED: PoTASSium chloRIDE 20MEQ/100ML 100 ML IV PRN (07:30)
[2024-02-18] MEDS ORDERED: CALCIUM CARB 500MG PO PRN (07:30)
[2024-02-18] MEDS: TRANEXAMIC ACID 1000MG/10ML ONE (08:10)
[2024-02-18] MEDS ORDERED: hydrALAZine 20MG/ML VIAL ONE (08:14)
--- NOTE | 2024-02-18 09:55 | OP ---
Operative Note: DATE OF PROCEDURE: 02/18/24 SURGEON: DAYAMI DIAZ MD DOLLYMAN: Dewey Joya ANESTHESIA: General and fascia iliaca block ANESTHESIOLOGIST/OPENSTACK CLOUD CONSULTING ARCHITECT: Rolando Aldridge CRNA PREOPERATIVE DIAGNOSIS: Right hip osteoarthritis POSTOPERATIVE DIAGNOSIS: Right hip osteoarthritis PROCEDURE: Right total hip arthroplasty ESTIMATED BLOOD LOSS: 250 cc INDICATIONS: 83-year-old female with chronic right hip pain secondary to right hip osteoarthritis failing conservative management. After discussion of the risks, benefits, and alternatives, the patient voluntarily agreed to undergo the aforementioned procedure. IMPLANTS: 50 mm Batista and Nephew three hole acetabular component with 6.5 screws x2 and central hole cover, 0 degree liner, size four standard offset anthology stem with a 36mm -3 Oxinium head, 2.0 mm accord cerclage cable placed for prophylaxis DESCRIPTION OF PROCEDURE: Patient was properly identified in the preoperative holding area. Surgical site marking was verified and surgery consent reviewed. The patient was then taken to the operating room and placed in supine position on the OR table. After induction of general anesthesia, preoperative antibiotics were given. The patient was then transitioned in the lateral decubitus position with the right side up. All bony prominences were well-padded. Right lower extremity was then prepped and draped in the usual sterile fashion. Surgical time out was done verifying correct surgery, side, site, and location to be performed. We then began the procedure by making approximately 15 cm long incision centered over the greater trochanter. Here we came sharply through skin down to the fascia. Hemostasis was then achieved using Bovie electrocautery. We then incised fascia in line with the skin incision and finger split the tensor muscle proximally. We then placed our Charnley retractor. At this point we identified the vastus ridge and began elevating the full-thickness soft tissue flap off of the vastus ridge, splitting the vastus lateralis and gluteus muscles as necessary. We then proceeded to externally rotate the femur while making this flap. We resected part of the anterior capsule. The femoral head and neck was then delivered into view. We then dislocated the hip and performed a femoral neck osteotomy approximately half fingerbreadth proximal lesser trochanter. We then placed our retractors around the superior and anterior portion of the acetabulum and began to remove the labrum circumferentially. We then began reaming the acetabulum where we reamed up to a size 49 ensuring appropriate anteversion and abduction. We then proceeded to trial with the size 49 acetabular component and this appeared to sit well. We opened our size 50 acetabular component and after irrigating out the wound malleted this into place. It appeared to have good press-fit however we elected to place 6.5mm s crews x 2. We drilled and filled the screws in standard fashion in the posterior superior portion of the cup. We then placed the manhole cover on the center of the cup. The wound was thoroughly irrigated out further and we placed the acetabular liner and impacted this in place in standard fashion. We then proceeded to reposition our retractors to elevate the proximal femur out of the wound. We then used the box chisel and canal finder to began preparing the femoral side and sequentially broached up to the aforementioned size stem. Once we felt we had good fit, fill, and control of the femur with the stem in place we then used our trial head component and reduce the hip. Under fluoroscopy we noted that the limb length appeared slightly long, we then dislocated the hip and trialed once more using the minus three head. Limb length appeared more appropriate with good soft tissue tensioning. There was question of possible under sizing of the stem under fluoroscopy but we did not want to go up on stem size as we did not want to cause any further lengthening. We then elected to place a prophylactic cerclage cable around the femur using the 2.0 mm accord cable. This was placed in standard fashion. We dislocated the hip once more removed our trial components thoroughly irrigated the out the wound and placed our final components in standard fashion. The hip was then reduced with the final components in place. It was found to be stable through range of motion with appropriate soft tissue tensioning and appropriate limb length. At this point we placed a bump under the knee and the foot on the male with a stack of towels to allow for internal rotation. We repaired the abductors back to the greater trochanter using #5 Ethibond. We then repaired the rent in the vastus lateralis and gluteus muscles using #1 Vicryl in a running fashion. We removed our Charnley retractor and began to repair the IT band using #1 Vicryl in interrupted [id number] fashion. At this point we began to close her subcutaneous tissue using 2-0 Vicryl. Running 3-0 Monocryl in subcuticular fashion with Dermabond placed over this for the skin. Island barrier dressing was then applied. Patient was returned to supine position with abduction pillow placed, awakened from anesthesia, and taken to the recovery room in stable condition. DAYAMI DIAZ MD Feb 18, 2024 09:55
[2024-02-18] MEDS: ketOROlac 15MG/ML VIAL (15MG/ML) ONE (10:40)
[2024-02-18] MEDS: acetaMINOPHEN 100 ML ONE (10:41)
[2024-02-18] MEDS: ALBUMIN HUMAN 25% 100 ML IV ONE (10:42)
[2024-02-18] MEDS: MEPERIDINE-PF 25 MG/ML SYG ONE (10:51)
[2024-02-18] MEDS: GABApentin 100 MG CAPSULE PO SCH (11:05)
[2024-02-18] MEDS: CYCLOBENZAPRINE HCL 10 MG TABLET PO PRN (11:06)
--- NOTE | 2024-02-18 11:19 | HMCIMG ---
HIP UNILAT 4VW RIGHT REASON: RIGHT TOTAL HIP ARTHROPLASTY. COMPARISON: None TECHNIQUE: Fluoroscopic images of right hip were obtained. FINDINGS: Please see procedure report by referring physician. IMPRESSION: Intraoperative films.
[2024-02-18] MEDS: HYDROcodone/APAP 5/325 1 TAB TABLET ONE (11:39)
[2024-02-18] MEDS ORDERED: ceFAZolin SODIUM 2 GM VIAL IVP SCH (12:30)
--- NOTE | 2024-02-18 12:39 | NUR ---
18 F NIELSON INSERTED V/O DR. DIAZ
--- NOTE | 2024-02-18 12:48 | NUR ---
REPORT CALLED TO THE FLOOR PENDING CALL BACK WHEN THE ROOM IS CLEAN
[2024-02-18] MEDS: NITROFURANTOIN MONOHYD/M-CRYST 100 MG CAPSULE PO SCH (13:54)
[2024-02-18] MEDS: LoSARTan 100 MG TABLET PO SCH (13:54)
[2024-02-18] MEDS: polyETHYLene GLYCol 3350 17 GM POWD.PACK PO SCH (13:54)
[2024-02-18] MEDS: doCUSate SODIUM 100 MG CAP PO SCH (13:55)
[2024-02-18] MEDS: 0.9%NACL 1000ML 1,000 ML IV SCH (13:55)
[2024-02-18] MEDS: carVEDIlol 25 MG TABLET PO SCH (13:55)
--- NOTE | 2024-02-18 14:13 | HMCIMG ---
HIP BILAT 2VW HISTORY: Post hip surgery COMPARISON: None TECHNIQUE: 5 images of bilateral hips were obtained. FINDINGS: Total right hip replacement changes are seen. Left hip joint space narrowing is seen. Postop changes are seen of the lumbar spine. Vascular calcifications are seen. Alignment appears be grossly adequate There is no acute displaced fracture or dislocation. Degenerative changes are seen. IMPRESSION: 1. Findings as described above.
[2024-02-18] MEDS: hydrOXYzine 10 MG TABLET PO ONE (14:26)
--- NOTE | 2024-02-18 14:30 | NUR ---
ORTHO COORDINATOR: TEACHING REGARDING PVT AND PNEUMONIA PREVENTION, PAIN EXPECTATIONS AND PAIN MANAGEMENT REVIEWED. PATIENT IN BED. B SCD SLEEVES IN PLACE AND FUNCTIONING. INCENTIVE SPIROMETER AT BEDSIDE. ICE PACK REMOVED FROM R HIP PER PATIENT REQUEST. PATIENT RETURN DEMONSTRATED PROPER TECHNIQUE FOR USE OF INCENTIVE SPIROMETER. FOOT FLEXION AND EXTENSION PERFORMED, DOES NOT HAVE FULL RANGE OF MOTION. PAIN EXPECTATIONS REVIEWED. NUMERICAL PAIN SCORE REVIEWED. INSTRUCTIONS PROVIDED THAT PAIN MEDICATION ARE ON DEMAND, SHE MUST REQUEST USING THE NUMERIC PAIN SCALE. PATIENT VERBALIZED UNDERSTANDING. PATIENT RATES PAIN 10. 1440 REPORT TO PRIMARY NURSE. PRIMARY NURSE ACKNOWLEDGED COMMUNICATION.
--- NOTE | 2024-02-18 15:45 | NUR ---
BLOOD PRESSURE PATIENT S/P RT TOTAL HIP SURGERY. POST OP VITALS READING BP @ 193/[address] DIAZ AND REPORTED FINDINGS. ORDERS PLACED BY DR. DIAZ FOR HYDRALAZINE IV PRN FOR SYSTOLIC BP >160. NO FURTHER ODERS GIVEN. WILL CONTINUE TO MONITOR.
[2024-02-18] MEDS ORDERED: hydrALAZine 20MG/ML VIAL IV PRN (16:30)
--- NOTE | 2024-02-18 16:31 | NUR ---
[facility] CM MET WITH PT, SPOUSE, AND DAUGHTER HEYDI LOW , ASSESSMENT DONE. PATIENT IS INDEPENDENT PRIOR TO SURGERY, LIVES AT HOME WITH , KATHIA COLEMAN FROM [place]. PATIENT HAS A STANDARD WALKER, ROLLATOR WALKER, WHEELCHAIR, SHOWER CHAIR, BIPAP, O2 INOGEN SHE BOUGHT PRIVATELY FROM [place], AND HAS A O2 CONCENTRATOR IN [place] FROM [facility]. DENIES ANY OTHER EQUIPMENT/SERVICES. FEELS SAFE TO GO BACK HOME, SPOUSE ABLE TO ASSIST WITH TRANSPORTATION AND NEEDS NECESSARY, DAUGHTER HEYDI CAME DOWN TO STAY WITH PT TEMPORARILY TO ASSIST AT [place]. DISCUSSED POSSIBLE HOME W/HH VS SHORT TERM REHAB, PT PREFERRED TO GO BACK HOME, REQUESTING SAME HH LAST TIME SHE HAD SURGERY HERE IN [place], SPOUSE VERBALIZED HE THINK IT IS [facility]. INFORMED PT AND SPOUSE THIS CM WILL LOOK AT PREVIOUS ADMISSION TO SEE WHICH HOME HEALTH AND WILL SEND REQUEST TO SAME . PT SIGNED CONSENT SHILPA FOR ANY IN NETWORK HH AT THIS TIME. [facility] HOME W/HH ONCE APPROVED. CM VERIFIED PAST SURGERY PT WENT HOME W/[facility]. CM SENT ORDER, CLINICALS TO [facility] VIA SECURE FAX AND EMAIL, CONFIRMATION RECEIVED. PENDING REP RESPONSE. PT CURRENTLY PENTIENT PT EVAL AT THIS TIME, WILL SEND NOTES ONCE AVAILABLE. PT PENDING APPROVAL FOR [facility]. PRIMARY NURSE RAYMOND MADE AWARE. DR DIAZ UPDATED. CM TO CONTINUE TO FOLLOW UP. Addendum: 02/18/24 at 1638 by BEVERLEY TUCKER LVN CM Amended: Links added.
[2024-02-18] MEDS: ceFAZolin SODIUM 2 GM VIAL IVP SCH (16:40)
--- NOTE | 2024-02-18 18:14 | NUR ---
Pt unable to ambulate d/t 11/10 pain with movement and high BP. BP at supine 187/97 sitting EOB at 198/96. Addendum: 02/18/24 at 1815 by RINKU ESCOBAR PT PT Amended: Links added.
[2024-02-18] MEDS ORDERED: hydrOXYzine 10 MG TABLET PO PRN (20:00)
[2024-02-18] MEDS: atorVAStatin 40 MG TABLET PO SCH (21:17)
[2024-02-18] MEDS: DOXAZOSIN MESYLATE 2 MG TABLET PO SCH (21:17)
[2024-02-19] VITALS: BP 146/64; PULSE 63; RESP 18; TEMP 98
[2024-02-19 04:00] VITALS: BP 130/54; PULSE 69; RESP 18; TEMP 97.4
[2024-02-19 04:36] LABS: HEMATOCRIT 29.9 % (36-48); MEAN CORPUSCULAR HGB CONC 33.1 g/dL (32.0-36.0); MEAN CORPUSCULAR VOLUME 99.7 fL (79-99); RED CELL DISTRIBUTION WIDTH 11.9 % (11.0-15.5); WHITE BLOOD COUNT (AUTO) 11.4 K/uL (4.8-10.8)
[2024-02-19 04:44] LABS: POTASSIUM 3.7 mmol/L (3.5-5.1)
[2024-02-19 06:50] VITALS: PULSE 65; RESP 18; O2SAT 98
[2024-02-19] MEDS ORDERED: ketOROlac 15MG/ML VIAL (15MG/ML) IV PRN (07:30)
[2024-02-19 08:00] VITALS: BP 138/54; PULSE 62; RESP 18; TEMP 98.5; O2SAT 98
--- NOTE | 2024-02-19 08:15 | PN ---
Ortho postop day one. This morning patient is awake alert and oriented she is in no acute distress. Reports a uneventful night. Vital signs have been stable. Afebrile. Laboratory results reviewed noted to have a drop in hemoglobin and hematocrit as expected after total hip arthroplasty. Currently patient is asymptomatic. We will address per protocol as necessary. Patient has not in indwelling Bernstein catheter and this will be removed this morning. She reports incontinence and can wear her adult briefs throughout the day. Operative findings discussed with the patient. Dressing is intact. Ice present to the operative site. Distal neurovascular exam intact. Negative Homans. Did not have an opportunity to ambulate with the physical therapy yesterday but is eager to start this morning. Performing incentive spirometry as instructed. Patient would like to go home with a home health/APC/PT. Assessment: Status post right total hip arthroplasty. Acute postoperative blood loss anemia. Plan: Continue with Dr. Montanez's total hip arthroplasty protocol and discharge planning. Acute postoperative blood loss anemia addressed with protocol Vitals/Labs Vital Signs Date Time Temp Pulse Resp B/P (MAP) Pulse Ox O2 Delivery O2 Flow Rate FiO2 02/19/24 06:50 65 18 N/Cannula Low lpm 2.0 28 02/19/24 04:00 97.3 130/54 95 Laboratory Tests 02/19/24 04:10 Medications Current Medications Lidocaine HCl 100 mg STK-MED ONCE .ROUTE; Start 02/18/24 at 06:47; Stop 02/18/24 at 06:47; Status DC Ondansetron HCl 4 mg STK-MED ONCE .ROUTE; Start 02/18/24 at 06:47; Stop 02/18/24 at 06:47; Status DC Clindamycin HCl/ Dextrose 0 ml @ As Directed STK-MED ONCE IV; Start 02/18/24 at 06:47; Stop 02/18/24 at 06:47; Status DC Lactated Ringer's 1,000 ml @ As Directed STK-MED ONCE IV Last administered on 02/18/24at 07:18; Start 02/18/24 at 06:47; Stop 02/18/24 at 06:47; Status DC Dexamethasone Sodium Phosphate 10 mg STK-MED ONCE .ROUTE; Start 02/18/24 at 06:47; Stop 02/18/24 at 06:47; Status DC Glycopyrrolate 1 mg STK-MED ONCE .ROUTE; Start 02/18/24 at 06:47; Stop 02/18/24 at 06:47; Status DC Propofol 200 mg STK-MED ONCE IV; Start 02/18/24 at 06:47; Stop 02/18/24 at 06:47; Status DC Neostigmine Methylsulfate 10 mg STK-MED ONCE IV; Start 02/18/24 at 06:47; Stop 02/18/24 at 06:47; Status DC Midazolam HCl 2 mg STK-MED ONCE .ROUTE; Start 02/18/24 at 06:47; Stop 02/18/24 at 06:47; Status DC Rocuronium Fisher 50 mg STK-MED ONCE .ROUTE; Start 02/18/24 at 06:48; Stop 02/18/24 at 06:48; Status DC Fentanyl Citrate 100 mcg STK-MED ONCE .ROUTE; Start 02/18/24 at 06:48; Stop 02/18/24 at 06:48; Status DC Ropivacaine 150 mg STK-MED ONCE .ROUTE; Start 02/18/24 at 06:52; Stop 02/18/24 at 06:52; Status DC Phenylephrine HCl 10 mg STK-MED ONCE IV; Start 02/18/24 at 06:54; Stop 02/18/24 at 06:54; Status DC Cefazolin Sodium 2 gm STK-MED ONCE .ROUTE Last administered on 02/18/24at 07:50; Start 02/18/24 at 07:06; Stop 02/18/24 at 07:08; Status DC Sodium Chloride 1,000 ml @ 100 mls/hr Q10H IV Last administered on 02/19/24at 03:08; Start 02/18/24 at 07:30; Stop 02/19/24 at 07:29; Status DC Polyethylene Glycol 17 gm DAILY PO; Start 02/18/24 at 09:00; Stop 03/19/24 at 08:59 Bisacodyl 10 mg DAILY PRN RC; Start 02/21/24 at 07:30; Stop 03/22/24 at 07:29 Ketorolac Tromethamine 15 mg Q6H PRN IV; Start 02/19/24 at 07:30; Stop 02/23/24 at 07:29 Ferrous Fumarate 324 mg DAILY PRN PO; Start 02/18/24 at 07:30; Stop 03/19/24 at 07:29 Calcium Carbonate 500 mg Q12H PRN PO; Start 02/18/24 at 07:30; Stop 03/19/24 at 07:29 Diphenhydramine HCl 25 mg Q6H PRN IVP; Start 02/18/24 at 07:30; Stop 02/18/24 at 17:01; Status DC Ondansetron HCl 4 mg Q6H PRN IVP; Start 02/18/24 at 07:30; Stop 03/19/24 at 07:29 Cefazolin Sodium 2 gm Q8H IVP; Start 02/18/24 at 12:30; Stop 02/18/24 at 14:09; Status DC Gabapentin 100 mg TID PO Last administered on 02/18/24at 21:17; Start 02/18/24 at 09:00; Stop 03/19/24 at 08:59 Cyclobenzaprine HCl 5 mg Q8H PRN PO Last administered on 02/18/24at 11:06; Start 02/18/24 at 07:30; Stop 03/19/24 at 07:29 Docusate Sodium 100 mg BID PO Last administered on 02/18/24at 21:18; Start 02/18/24 at 09:00; Stop 03/19/24 at 08:59 Ketorolac Tromethamine 15 mg Q8H IV Last administered on 02/18/24at 23:38; Start 02/18/24 at 07:30; Stop 02/18/24 at 23:31; Status DC Aspirin 325 mg DAILY PO; Start 02/19/24 at 09:00; Stop 03/20/24 at 08:59 Potassium Chloride 100 ml @ 100 mls/hr AD PRN IV; Start 02/18/24 at 07:30; Stop 03/19/24 at 07:29 Potassium Chloride 20 meq AD PRN PO; Start 02/18/24 at 07:30; Stop 03/19/24 at 07:29 Potassium Chloride 20 meq AD PRN PO; Start 02/18/24 at 07:30; Stop 03/19/24 at 07:29 Acetaminophen/ Hydrocodone Bitart Q4H PRN PO; Start 02/18/24 at 07:30; Stop 02/23/24 at 07:29 Atorvastatin Calcium 40 mg HS PO Last administered on 02/18/24at 21:17; Start 02/18/24 at 21:00; Stop 03/19/24 at 20:59 Carvedilol 25 mg BID PO Last administered on 02/18/24at 21:18; Start 02/18/24 at 09:00; Stop 03/19/24 at 08:59 Furosemide 20 mg AD PO; Start 02/18/24 at 07:30; Stop 02/18/24 at 07:28; Status DC Losartan Potassium 100 mg AM PO; Start 02/18/24 at 09:00; Stop 03/19/24 at 08:59 Doxazosin Mesylate 1 mg HS PO Last administered on 02/18/24at 21:17; Start 02/18/24 at 21:00; Stop 03/19/24 at 20:59 Nitrofurantoin Macrocrystals 100 mg BID PO Last administered on 02/18/24at 21:18; Start 02/18/24 at 09:00; Stop 02/28/24 at 09:00 Dexamethasone Sodium Phosphate 10 mg STK-MED ONCE .ROUTE; Start 02/18/24 at 07:45; Stop 02/18/24 at 07:46; Status DC Tranexamic Acid 1,000 mg STK-MED ONCE .ROUTE Last administered on 02/18/24at 08:10; Start 02/18/24 at 08:05; Stop 02/18/24 at 08:05; Status DC Hydralazine HCl 20 mg STK-MED ONCE .ROUTE; Start 02/18/24 at 08:14; Stop 02/18/24 at 08:15; Status DC Fentanyl Citrate 100 mcg STK-MED ONCE .ROUTE; Start 02/18/24 at 09:37; Stop 02/18/24 at 09:37; Status DC Acetaminophen 100 ml @ As Directed STK-MED ONCE .ROUTE Last administered on 02/18/24at 10:41; Start 02/18/24 at 10:27; Stop 02/18/24 at 10:27; Status DC Albumin Human 100 ml @ As Directed STK-MED ONCE IV Last administered on 02/18/24at 10:42; Start 02/18/24 at 10:28; Stop 02/18/24 at 10:28; Status DC Ketorolac Tromethamine 15 mg STK-MED ONCE .ROUTE Last administered on 02/18/24at 10:40; Start 02/18/24 at 10:33; Stop 02/18/24 at 10:33; Status DC Meperidine HCl 25 mg STK-MED ONCE .ROUTE Last administered on 02/18/24at 10:51; Start 02/18/24 at 10:46; Stop 02/18/24 at 10:46; Status DC Acetaminophen/ Hydrocodone Bitart 1 tab STK-MED ONCE .ROUTE Last administered on 02/18/24at 11:39; Start 02/18/24 at 11:36; Stop 02/18/24 at 11:37; Status DC Hydroxyzine HCl 10 mg ONCE ONCE PO Last administered on 02/18/24at 14:26; Start 02/18/24 at 13:45; Stop 02/18/24 at 13:46; Status DC Cefazolin Sodium 2 gm Q8H IVP Last administered on 02/18/24at 23:38; Start 02/18/24 at 16:00; Stop 02/19/24 at 00:01; Status DC Hydralazine HCl 20 mg Q4H PRN IV; Start 02/18/24 at 16:30; Stop 03/19/24 at 16:29 Hydroxyzine HCl 10 mg TID PRN PO; Start 02/18/24 at 20:00; Stop 03/19/24 at 19:59 NUVIA KEENE NP Feb 19, 2024 08:15
[2024-02-19] MEDS: ASPIRIN 325MG EC TAB PO SCH (09:48)
[2024-02-19] MEDS: HYDROcodone/APAP 5/325 1 TAB TABLET PO PRN (09:50)
--- NOTE | 2024-02-19 11:54 | NUR ---
CM NOTE: [facility] APPROVAL CM SPOKE TO [facility], PT HAS ACCEPTANCE, HH WILL SEE PT DAY AFTER DC. PT HAS OWN CURRENT WORKING DME AT HOME. PRIMARY NURSE MANJIT MADE AWARE. DR DIAZ UPDATED. CM TO CONTINUE TO FOLLOW UP. Addendum: 02/19/24 at 1158 by BEVERLEY TUCKER LVN CM Amended: Links added.
[2024-02-19 19:17] VITALS: PULSE 68; RESP 18; O2SAT 97
[2024-02-19 20:00] VITALS: BP 156/70; PULSE 66; RESP 20; TEMP 97.6
[2024-02-20] VITALS: BP 142/65; PULSE 59; RESP 20; TEMP 97.5
[2024-02-20 04:00] VITALS: BP 156/60; PULSE 61; RESP 18; TEMP 97.7
[2024-02-20 06:31] VITALS: PULSE 59; RESP 18; O2SAT 97
[2024-02-20 07:53] VITALS: O2SAT 97
[2024-02-20 08:00] VITALS: BP 142/60; PULSE 58; RESP 18; TEMP 98.1
[2024-02-20 12:00] VITALS: BP 152/63; PULSE 62; RESP 18; TEMP 97.6
[2024-02-20] MEDS ORDERED: CYCL-309 PO (12:28)
[2024-02-20] MEDS ORDERED: GABA100C PO (12:28)
[2024-02-20] MEDS ORDERED: NITR100C4 PO (12:28)
[2024-02-20] MEDS ORDERED: DOCU-116 PO (12:28)
[2024-02-20] MEDS ORDERED: HYDR-4060 PO (12:28)
--- NOTE | 2024-02-20 12:33 | DS ---
Discharge Summary Hospital Course Summary: The patient was admitted to the hospital postoperatively on 02/18/2024 after undergoing right total hip arthroplasty. They did well with routine postoperative pain control. They worked well with physical therapy. Patient had UTI present on admission. Initially had some pain control issues postoperatively but this improved over time. Developed some acute blood loss anemia but remained asymptomatic. They were subsequently able to be discharged on postoperative day 2 once discharge arrangements were made with [facility] home health physical therapy. Assessment/Plan: postop day two Patient reports she feels improvement today. States she ambulated well with physical therapy in his passing gas. Denies bowel movement yet. Vital signs stable, afebrile No acute distress alert and oriented x3 Nonlabored breathing Right lower extremity with intact dorsiflexion and plantar flexion of the ankle, clean dry and intact surgical dressing over the right hip with surrounding ecchymosis and mild edema, on assessment of leg length she appears to be slight ly longer on her operative side. Patient ambulated with physical therapy yesterday 60/100 feet in the a.m./p.m. Discharge planning arrangements have been made for home health physical therapy with [facility]. ASSESSMENT: Postoperative day two status post right total hip arthroplasty UTI present on admission Acute blood loss anemia, asymptomatic PLAN: See discharge instructions I explained that the leg length discrepancy secondary to trying to achieve a stable hip. Patient understands and we discussed that after she finishes rehabbing the hip we can consider a shoe lift on the contralateral side if needed. Discharge Instructions: Begin working with home health physical therapy. Remembered do not flex the hip more than 90 and do not cross midline at the knees or ankles for the 1st six weeks. If you are side sleeper place a pillow between the knees and ankles to prevent the legs from crossing. Dressing may be removed 02/21/2024 and left open to air. Showers ok allowing soap and water to run over the wound. Pat dry. Do not submerge wound in tub/pool. Do not apply ointments. Do not apply Betadine. Do not apply peroxide. Ice packs to decrease pain/swelling. Prescriptions have been sent to the pharmacy: *[place] 5/325mg 1-2 tab every 6 hours as needed for severe pain. (please call for refills) Cyclobenzaprine 5mg 1 tab every 8 hours as needed for muscle spasm pain. Gabapentin 100mg 1 tab every 8 hours (may discontinue if drowsy). Colace 100mg 1 tab orally twice a day as needed for constipation. Resume your home anticoagulation Call for a follow-up appointment in 2-3 weeks at [facility]. Home Medications: Active Scripts Hydrocodone/Acetaminophen (Hydrocodon-Acetaminophen 5-325) 5 Mg-325 Mg Tablet, 1-2 TAB PO Q4H PRN for MODERATE/SEVERE PAIN LEVEL, #56 TAB 0 Refills Prov:DAYAMI DIAZ MD 02/20/24 Reported Medications Acetaminophen (Tylenol) 500 Mg Tab, 600 MG PO AD, TAB 02/11/24 Furosemide (Furosemide) 20 Mg Tablet, 20 MG PO AD for EDEMA, TAB 02/11/24 Losartan Potassium (Losartan Potassium) 100 Mg Tablet, 100 MG PO AM, TAB 02/11/24 Doxazosin Mesylate (Doxazosin Mesylate) 1 Mg Tablet, 1 MG PO HS, TAB 03/01/23 Carvedilol (Carvedilol) 25 Mg Tablet, 25 MG PO BID, TAB 03/01/23 Atorvastatin Calcium (LIPITOR) 40 Mg Tablet, 40 MG PO HS, TAB 07/03/18 Rivaroxaban (Xarelto) 20 Mg Tablet, 20 MG PO HS, TAB 07/03/18 Aspirin (Aspirin) 81 Mg Tab.chew, 81 MG PO AM, TAB.CHEW 07/03/18 DAYAMI DIAZ MD Feb 20, 2024 12:33
--- NOTE | 2024-02-20 13:31 | NUR ---
DC INSTRUCTIONS PROVIDED TO PATIENT ALONG WITH SCRIPTS THAT WERE SENT ELECTRONICALLY TO PATIENTS PHARMACY , ALSO INFORMED HER OF FOLLOW UIP APPOINTMENT WITH DR DIAZ . PATIENT VERBALIZED UNDERSTANDING .. DRESSING CLEAN AND DRY PEDAL PULSES PRESENT , EXTREMITY WARM .
--- NOTE | 2024-02-20 14:11 | NUR ---
REPORT WAS GIVEN TO SIGIFREDO GOTTI FROM [facility]
[2024-02-21] MEDS ORDERED: BisaCODYL 10 MG SUPP.RECT RC PRN (07:30)
== END 2024-02-20 15:25 | disposition home or self-care (01) ==
LOC: DAHIP 02-18 05:50 → 4CH 02-18 13:40
PROVIDERS: ADMIT Student in an Organized Health Care Education/Training Program; ATTEND Student in an Organized Health Care Education/Training Program
DX: M16.11 Unilateral primary osteoarthritis, right hip (principal); G89.29 Other chronic pain; D62 Acute posthemorrhagic anemia; R60.0 Localized edema; N39.0 Urinary tract infection, site not specified; I11.0 Hypertensive heart disease with heart failure; I50.9 Heart failure, unspecified; I48.91 Unspecified atrial fibrillation; E78.5 Hyperlipidemia, unspecified; G47.33 Obstructive sleep apnea (adult) (pediatric); Z88.0 Allergy status to penicillin; Z79.82 Long term (current) use of aspirin; Z79.899 Other long term (current) drug therapy
CPT/HCPCS: 82040; 80048 ×2; 85025; 85610; 85730; 87086 ×2; 87186; 84134; 86140; 81001; 36415 ×2; 87641; 73503; 96374; 96376; 96375; 27130; 73521; 97161; 97530 ×5; 85027; 82948; 97116 ×3; G0378 ×48; A4223 ×2; A4663; C1713; C1776; J7120; J3010 ×2; J3490 ×3; J1100 ×2; J2003; J0360; J2250; J2704; J2405; J2710; J2175; J2795; J1885 ×3; J2371; P9046; J0690 ×3; A4649 ×2; A4930; A6255; A5120; A4215; A4222; A4221; A4216

== ENCOUNTER → 2024-05-29 | Outpatient (CLI) | payer MEDICARE ==
[~2024-05-29] MED LIST changes: -ACET-66 PO; +CYCL-309 PO; +DOCU-116 PO; +GABA100C PO; +HYDR-4060 PO; +NITR100C4 PO
--- NOTE | 2024-05-30 14:21 | HMCSR ---
APPROVED REPORT Laterality: Bilateral Indications Claudication: , PAD VELOCITY AND DOPPLER WAVEFORM ANALYSIS BICYCLE REPAIRER (R) 264.0cm/sec, Biphasic, Moderate > 50%BICYCLE REPAIRER (L) 164.7cm/sec, Biphasic, Prof Fem Art. (R) 227.3cm/sec, Biphasic, Moderate > 50%Prof Fem Art. (L) 78.7cm/sec, Biphasic, Fem Art Prox. (R) 299.1cm/sec, Biphasic, Moderate > 50%Fem Art Prox. (L) 122.9cm/sec, Biphasic, Fem Art Mid. (R) 75.9cm/sec, Biphasic, Fem Art Mid. (L) 110.4cm/sec, Biphasic, Fem Art Dist (R) 108.8cm/sec, Biphasic, Fem Art Dist. (L) 98.0cm/sec, Biphasic, Pop Art(AK) (R) 63.5cm/sec, Biphasic, Pop Art (AK) (L) 62.0cm/sec, Biphasic, Pop Art (Fossa)(R) 150.0cm/sec, Biphasic, Pop Art (Fossa) (L) 98.4cm/sec, Biphasic, Pop Art(BK) (R) 103.0cm/sec, Biphasic, Pop Art (BK) (L) 98.4cm/sec, Biphasic, EPIC SPECIALIST Prox. (R) 81.0cm/sec, Biphasic, EPIC SPECIALIST Prox. (L) 79.1cm/sec, Biphasic, EPIC SPECIALIST Mid. (R) 70.6cm/sec, Biphasic, EPIC SPECIALIST Mid. (L) 79.9cm/sec, Biphasic, EPIC SPECIALIST Dist. (R) 98.4cm/sec, Biphasic, EPIC SPECIALIST Dist. (L) 69.5cm/sec, Biphasic, Per Art Prox. (R) 46.2cm/sec, Biphasic, Per Art Prox. (L) 55.5cm/sec, Biphasic, Per Art Mid. (R) 62.1cm/sec, Biphasic, Per Art Mid. (L) 66.9cm/sec, Biphasic, Per Art Dist. (R) 50.4cm/sec, Biphasic, Per Art Dist. (L) 86.8cm/sec, Biphasic, JAVIER Prox. (R) 81.6cm/sec, Biphasic, JAVIER Prox. (L) 83.4cm/sec, Biphasic, JAVIER Mid. (R) 96.9cm/sec, Biphasic JAVIER Mid. (L) 56.7cm/sec, Biphasic, JAVIER Dist. (R) 62.8cm/sec, Biphasic, JAVIER Dist. (L) 93.8cm/sec, Biphasic, Technologist Impression Velocites are suggestive of >50% stenosis Right BICYCLE REPAIRER, DFA and proximal SFA. Multiphasic waveforms throughout the bilateral lower extremiteis. 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
--- NOTE | 2024-05-30 14:21 | HMCSR ---
APPROVED REPORT Bilateral Lower Extremity Venous Study for DVT., Venous Competence. Indications i87.1, i87.2 Vein Imaging CFV (R): Normal flow, augmentation and compression. No evidence of DVT. 8.3mm 1367ms of reflux. SFJ (R): Normal flow, augmentation and compression. No evidence of DVT. FEM (R): Normal flow, augmentation and compression. No evidence of DVT. POP (R): Normal flow, augmentation and compression. No evidence of DVT. DFV (R): Normal flow, augmentation and compression. No evidence of DVT. PTV (R): Normal flow, augmentation and compression. No evidence of DVT. Peroneals (R): Normal flow, augmentation and compression. No evidence of DVT. CFV (L): Normal flow, augmentation and compression. No evidence of DVT. 7.6mm 1433ms of reflux. SFJ (L): Normal flow, augmentation and compression. No evidence of DVT. FEM (L): Normal flow, augmentation and compression. No evidence of DVT. POP (L): Normal flow, augmentation and compression. No evidence of DVT. DFV (L): Normal flow, augmentation and compression. No evidence of DVT. PTV (L): Normal flow, augmentation and compression. No evidence of DVT. Peroneals (L): Normal flow, augmentation and compression. No evidence of DVT. Technologist Impression Deep veins of the bilateral lower extremiites appear patent and compressible without thrombus. Deep venous reflux noted in the RCFV and LCFV. No evidence of superficial venous insufficiency. RGSV junction 3.3mm 0.0ms not seen distally RSSV prox 2.3mm 0.0ms mid 2.5mm 0.0ms LGSV junction 4.1mm 350ms thigh 2.8mm 233ms knee 2.4mm 0.0ms calf 1.7mm 0.0ms LSSV prox 2.4mm 0.0ms mid 2.4mm 0.0ms Conclusion Deep venous reflux noted in the RCFV and LCFV. No evidence of superficial venous insufficiency. Consider formal venography with intravascular ultrasound if clinically indicated Conclusion Deep venous reflux noted in the RCFV and LCFV. No evidence of superficial venous insufficiency. Consider formal venography with intravascular ultrasound if clinically indicated
== END | disposition home or self-care (01) ==
LOC: SHCH 12:44
PROVIDERS: ATTEND Internal Medicine Cardiovascular Disease
DX: I70.201 Unspecified atherosclerosis of native arteries of extremities, right leg (principal); I87.2 Venous insufficiency (chronic) (peripheral); I87.1 Compression of vein
CPT/HCPCS: 93925; 93970